=== PATIENT | male | born 1980 | race African-American/Black ===

== ENCOUNTER 2018-06-03 09:18 | Day surgery (SDC) | payer MEDICAID ==
[~2018-06-03] VITALS: Ht 165.1 cm; Wt 87.4 kg
[~2018-06-03 09:18] MED LIST: CEFAZOLIN 1,000 MG ONE; FENTANYL PF 250 MCG/5ML ONE; GLYCOPYRROLATE 0.4 MG/2 ML, 2ML ONE; MIDAZOLAM 1 MG/ML, 2ML ONE; NEOSTIGMINE 1 MG/ML, 10ML ONE; PROPOFOL 10 MG/ML, 20ML ONE; ROCURONIUM 10MG/ML,5ML ONE; ROPIvacaine/PF 0.5%, 30 ML ONE; WATER-INJECTION,STERILE 10 ML IV ONE
[2018-06-03] MEDS ORDERED: MULT-6 PO (09:38)
[2018-06-03] MEDS ORDERED: IRON1TAB60 PO (09:38)
[2018-06-03 09:39] VITALS: BP 134/89
[2018-06-03] MEDS ORDERED: LACTATED RINGERS 1,000 ML IV SCH (09:39)
[2018-06-03] MEDS ORDERED: EPINEPHRINE 1 MG/ML, 1ML ONE (09:40)
[2018-06-03] MEDS ORDERED: BUPIVACAINE 0.25% ONE (09:40)
[2018-06-03] MEDS ORDERED: PROMETHAZINE 12.5 MG SUPP PR PRN (10:00)
[2018-06-03] MEDS ORDERED: hydrALAzine 20 MG/ML, 1ML IV PRN (10:00)
[2018-06-03] MEDS ORDERED: ACETAMINOPHEN 325 MG TABLET PO PRN (10:00)
[2018-06-03] MEDS ORDERED: FENTANYL PF 100 MCG/2ML IV PRN (10:00)
[2018-06-03] MEDS ORDERED: LABETALOL 5MG/ML, 20ML IV PRN (10:00)
[2018-06-03] MEDS ORDERED: OXYcodone 5 MG/5 ML ORAL.SOL UDC PO PRN (10:00)
[2018-06-03] MEDS ORDERED: ONDANSETRON ODT 8 MG PO PRN (10:00)
[2018-06-03] MEDS ORDERED: MORPHINE SULFATE 4 MG/ML, 1ML IVPush PRN (10:00)
[2018-06-03] MEDS ORDERED: HYDROmorphone 1 MG/ML, 1ML IV PRN (10:00)
[2018-06-03] MEDS ORDERED: MEPERIDINE/PF 25MG/0.5ML IVPush PRN (10:00)
[2018-06-03] MEDS ORDERED: ONDANSETRON 2MG/ML, 2ML IV PRN (10:00)
[2018-06-03] MEDS ORDERED: PROMETHAZINE 25 MG/ML, 1ML IV PRN (10:00)
[2018-06-03] MEDS ORDERED: PROMETHAZINE 25 MG SUPP PR PRN (10:00)
[2018-06-03] MEDS ORDERED: ROPIvacaine/PF 0.5%, 30 ML ONE (10:24)
[2018-06-03] MEDS ORDERED: GLYCOPYRROLATE 0.4 MG/2 ML, 2ML ONE (11:02)
[2018-06-03] MEDS ORDERED: OXYcodone 5 MG/5 ML ORAL.SOL UDC ONE (11:39)
[2018-06-03] MEDS ORDERED: MEPERIDINE/PF 50 MG/ML ONE (11:44)
[2018-06-03] MEDS ORDERED: KETOROLAC 30 MG/1 ML IVPush PRN (13:30)
[2018-06-03] MEDS ORDERED: OXYcodone/APAP 5/325MG TABLET ONE (15:18)
[2018-06-03] MEDS ORDERED: OXYcodone/APAP 5/325MG TABLET PO PRN (15:30)
== END 2018-06-03 16:25 | disposition home or self-care (01) ==
LOC: OUT 09:18
PROVIDERS: ATTEND Orthopaedic Surgery
DX: S76.111A Strain of right quadriceps muscle, fascia and tendon, initial encounter (principal); X58.XXXA Exposure to other specified factors, initial encounter; Y93.89 Activity, other specified; Y92.89 Other specified places as the place of occurrence of the external cause; Y99.8 Other external cause status; Z79.899 Other long term (current) drug therapy
CPT/HCPCS: 27385; 64447; J0690; J1885; J2175; J2250; J2704; J2710; J2795; J3010; J7120; J0171; J3490